=== PATIENT | male | born 1970 | race Caucasian/White ===

== ENCOUNTER 2021-01-22 02:29 | Emergency (ER) | payer BC, OTHER ==
[2021-01-22 02:45] VITALS: BMI 29.9
[2021-01-22] MEDS ORDERED: ASPIRIN 81 MG CHEWABLE TABLETS PO ONE (03:41)
[2021-01-22] MEDS ORDERED: ASPIRIN 81 MG CHEWABLE TABLETS ONE (03:51)
[2021-01-22 03:54] LABS: BASO % 1.2 % (0-2.0); EOS % 6.5 % (0-4.5); HEMATOCRIT 41.3 % (35.4-49); LYMPH % 32.1 % (8-40); MCH 27.8 pg (25.7-33.7); MEAN CELL VOLUME 81.7 fl (80-96); MEAN PLT VOLUME 8.2 fl (7.5-11.1); MONO % 9.4 % (3.8-10.2); NEUT % 50.8 % (42.8-82.8); PLATELET COUNT 145 10^3/uL (134-434); RBC 5.06 M/mm3 (4.00-5.60); RDW 13.8 % (11.9-15.9); WHITE BLOOD COUNT 3.6 K/mm3 (4.0-10.0)
[2021-01-22 04:09] LABS: ALBUMIN 3.8 g/dl (3.4-5.0); BLOOD UREA NITROGEN 12.4 mg/dL (7-18); CALCIUM 9.2 mg/dL (8.5-10.1)
[2021-01-22 04:13] LABS: CREATININE 0.9 mg/dL (0.55-1.3)
[2021-01-22 04:14] LABS: BILIRUBIN,TOTAL 0.3 mg/dL (0.2-1); TOT PROT 7.6 g/dl (6.4-8.2)
[2021-01-22] MEDS ORDERED: SODIUM CHLORIDE 1,000 ML IV ONE (04:16)
[2021-01-22 08:42] VITALS: BP 107/73; PULSE 57; TEMP 98.3
== END 2021-01-22 10:33 | disposition home or self-care (01) ==
LOC: JER 02:29
PROC: 3E0337Z Introduction of Electrolytic and Water Balance Substance into Peripheral Vein, Percutaneous Approach (ICD-10-PCS; principal; 2021-01-22)
DX: R55 Syncope and collapse (principal)
CPT/HCPCS: 36415; 71046-TC-FY; 80053; 82550; 82553; 84484; 85025; 93005; 93010; 99285-25